=== PATIENT | male | born 1935 | race Caucasian/White ===

== ENCOUNTER 2016-10-31 07:16 | Emergency (ER) | payer OTHER, MEDICARE ==
[~2016-10-31] VITALS: Ht 172.7 cm; Wt 90.7 kg
[~2016-10-31 07:16] MED LIST: ATENOLOL50 MG PO; DOXYCYCLINE100 MG PO; EPIPEN 2-PAK1 MG/ML IM; LOSARTAN POTAS100 MG PO; PREDNICOT20 MG PO; SIMVASTATIN80 MG PO
--- NOTE | 2016-10-31 07:45 | ED AMS/SEIZURE/WEAK/DIZZY ---
History of Present Illness General Chief Complaint: General Adult Stated Complaint: BIBA FEVER,DIZZY,GEN MALAISE Source: patient, old records, EMS Exam Limitations: poor historian Vital Signs & Intake/Output Vital Signs & Intake/Output Vital Signs Date Time Temp Pulse Resp B/P Pulse O2 O2 Flow FiO2 Ox Delivery Rate 10/31 1031 99.4 96 20 133/63 95 Room Air Room Air 10/31 0859 100.5 10/31 0853 100.5 96 15 124/57 96 Nasal 2.0L Cannula 10/31 0751 101.8 10/31 0730 92 Room Air Room Air 10/31 0720 101.8 112 20 145/65 92 Room Air Room Air Allergies Coded Allergies: Sulfa (Sulfonamide Antibiotics) (UNKNOWN 10/31/16) aspirin (UNKNOWN 10/31/16) Reconcile Medications Atenolol 50 MG TAB 1 TAB PO DAILY BP (Reported) Doxycycline Hyclate 100 MG CAP 1 CAP PO BID INFECTION (Reported) Epinephrine (Epipen 2-Grzegorz Auto-Injector) 1 MG/ML KIT 0.3 mg IM PRN ANAPHYLAXIS Losartan Potassium 100 MG TAB 1 TAB PO DAILY HTN (Reported) Prednisone (Prednicot) 20 MG TAB 1 TAB PO TID ALLERGIC REACTION Simvastatin (Zocor) 80 MG TAB 0.5 TAB PO DAILY HIGH CHOLESTEROL (Reported) Triage Note: PT BIBA FROM HOME FOR GENERALIZED WEAKNESS AND MALAISE WITH LIGHTHEADEDNESS UPON POSITION CHANGE. ALSO COMPLAINS OF FEVER 102.8 AT HOME, 101.8 ON ARRIVAL. PT TACHYCARDIC 110. DENIES ANY COUGH, CHILLS, PAIN, DIFF URINATING. Triage Nurses Notes Reviewed? yes HPI: Patient presents for evaluation of generalized weakness and trouble walking that occurred prior to arrival. The patient himself wasn't sure exactly why he was brought to the emergency Department history was obtained primarily via his . His states that upon awakening this morning he didn't seem to feel well. She states he looked somewhat beltre and was having trouble getting up out of bed. She got him a drink of water but noted that he was having some trouble with ambulating. In addition he felt like he had a fever today. He denies associated cold symptoms, chest pain, dyspnea, abdominal pain, vomiting, diarrhea, dysuria, rashes, known ill contacts or recent travel. Past History Travel History Traveled to [place] past 21 day No Medical History Any Pertinent Medical History? 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 No Review of Systems Review of Systems Constitutional: Reports: fever, weakness. EENTM: Reports: no symptoms. Respiratory: Reports: no symptoms. Cardiovascular: Reports: no symptoms. GI: Reports: no symptoms. Genitourinary: Reports: no symptoms. Musculoskeletal: Reports: no symptoms. Skin: Reports: no symptoms. Neurological/Psychological: Reports: no symptoms. Hematologic/Endocrine: Reports: no symptoms. Immunologic/Allergic: Reports: no symptoms. All Other Systems: Reviewed and Negative Physical Exam Physical Exam General Appearance: SEE BELOW Comments: Gen.: Well-nourished, well-developed, no acute respiratory distress. Head: Normocephalic, atraumatic. Eyes: Normal inspection bilaterally Ears: Normal inspection bilaterally Nose: Normal inspection Throat/mouth : Moist mucosa, no oropharyngeal erythema or soft tissue swelling Neck: Supple, full range of motion, no goiter Heart: Regular rate and rhythm, no murmurs rubs or gallops Lungs: Clear to auscultation bilaterally with normal air entry Chest: Nontender Back: Normal range of motion Abdomen: Soft, nontender, nondistended, normal bowel sounds Extremities: Normal range of motion grossly, equal radial pulses, no cyanosis, bilateral 2+ lower extremity pitting edema with chronic skin changes/stasis dermatitis Neurologic: Cranial nerves grossly intact, speech is clear Skin: warm and dry Psychiatric: Calm, cooperative, no apparent delusions or hallucinations Core Measures ACS in differential dx? No CVA/TIA Diagnosis: No Severe Sepsis Present: No Septic Shock Present: No Progress Differential Diagnosis: viral syndrome, pneumonia, urinary tract infection, bacteremia Plan of Care: Orders Procedure Date/time Status CULTURE,URINE 02/16 0744 Active BLOOD CULTURE 10/31 743 Active URINALYSIS 10/31 743 Complete TROPONIN LEVEL 10/31 730 Complete COMPREHENSIVE METABOLIC PANEL 10/31 730 Complete CBC WITHOUT DIFFERENTIAL 10/31 730 Complete EKG 10/31 730 Active Laboratory Tests 10/31/16 0842: Urine Color YEL, Urine Clarity CLEAR, Urine pH 6.0, Ur Specific [place] 1.015, Urine Protein NEG, Urine Ketones NEG, Urine Nitrite NEG, Urine Bilirubin NEG, Urine Urobilinogen 0.2, Ur Leukocyte Esterase NEG, Ur Microscopic EXAM NOT REQUIRED, Urine Hemoglobin NEG, Urine Glucose NEG 10/31/16 0737: Anion Gap 10, Estimated GFR > 60, BUN/Creatinine Ratio 17.3, Glucose 134 H, Calcium 9.0, Total Bilirubin 1.3, AST 25, ALT 27, Alkaline Phosphatase 76, Troponin I < 0.01, Total Protein 5.9 L, Albumin 3.6, Globulin 2.3, Albumin/ Globulin Ratio 1.6, CBC w Diff MAN DIFF ORDERED, RBC 4.06 L, MCV 95.2 H, MCH 32.0 H, RDW 14.7 H, MPV 8.1, Gran % 92.9 H, Lymphocytes % 3.3 L, Monocytes % 3.6, Eosinophils % 0.1, Basophils % 0.1, Absolute Granulocytes 12.5 H, Absolute Lymphocytes 0.4 L, Absolute Monocytes 0.5, Absolute Eosinophils 0, Absolute Basophils 0, Platelet Estimate VERIFIED BY SMEAR, Normocytic RBCs VERIFIED, Normochromic RBCs VERIFIED, PUBS MCHC 33.6 Microbiology 10/31 0850 BLOOD: Blood Culture - RECD 10/31 841 URINE ROUT: Urine Culture - RECD 10/31 736 BLOOD: Blood Culture - RECD Diagnostic Imaging: Discussed w/RAD: Radiology Read. CXR Impression: PATIENT: ULISSES MCDANIEL PRESENT AGE: 81 PATIENT ACCOUNT NO: [id number] : 35 LOCATION: [facility] ORDERING PHYSICIAN: YARIEL RILEY MD SERVICE DATE: 10/31/16 EXAM TYPE: RAD - XRY-PORTABLE CHEST XRAY EXAMINATION: XR PORTABLE CHEST CLINICAL INFORMATION: Fever and weakness COMPARISON: CXR from 05/03/2012 TECHNIQUE: Portable AP view of the chest was obtained. FINDINGS: Lungs are well expanded and clear. No evidence of acute pulmonary consolidation or pleural effusion on this single view of the chest. Cardiac silhouette is normal in size. The contour of the cardiac silhouette and paracardiac fat pads is unchanged compared to 05/03/2012. Pulmonary kelli are unremarkable. No acute skeletal findings in the visualized thorax. IMPRESSION: No acute findings; no evidence of pneumonia. DICTATED BY: TOMER ARRIETA MD DATE/TIME DICTATED:10/31/16816 ER REGISTRAR:FAM DATE/TIME TRANSCRIBED:10/31/16816 CONFIDENTIAL, DO NOT COPY WITHOUT APPROPRIATE AUTHORIZATION. <Electronically signed in Other Vendor System> SIGNED BY: TOMER ARRIETA MD 10/31/16822 Initial ED EKG: NSR, rate (107) Prior EKG: unchanged (ASIDE FROM RATE) Comments: 10/31/2016 10:09:50 AM I have updated Ulisses and his on test results. He would rather not be hospitalized under the circumstances but given the difficulty he had getting out of bed and ambulating, I have expressed my concerns. I have just taken him off his oxygen supplementation and will monitor for any hypoxia. In addition we will see how well he ambulates in the emergency department. Disposition is pending. pt case d/w dr marie. The patient has no apparent clinical focus of infection or increasing the likelihood that this is a viral illness. However given his age and elevation of white blood cell count, we feel it is appropriate for close clinical follow-up. He will contact his covering physician (he will be on vacation starting today) for follow-up appointment tomorrow. Otherwise the last that the patient return to the emergency department for reevaluation. Departure Departure Disposition: HOME OR SELF CARE Condition: Stable Clinical Impression Primary Impression: Febrile illness, acute Referrals: RIMA FERGUSON,BENJI Gallegos (PCP/Family) Additional Instructions: Tylenol 650 mg every 4-6 hours as needed for fever. Maintained a good fluid intake. He will need to be seen in follow-up tomorrow by a physician covering for Dr. Marie. Dr. Marie will contact your home regarding this follow-up appointment. If this does not occur please return to the emergency department for reevaluation tomorrow afternoon. Otherwise return if any concerns or sudden worsening. Please note that there might be incidental findings in your evaluation that are unrelated to the current emergency department visit. Please notify your primary care doctor about this emergency department visit in order to obtain and review all of the testing performed so that these incidental findings can be monitored as needed. If you had an x-ray performed, please understand that some fractures may not be seen on the initial set of x-rays. If your symptoms persist you might need a repeat set of x-rays to check for such a fracture. If you had a laceration evaluated, please understand that foreign bodies such as glass or wood may not be visible to the naked eye or on plain x-rays. If the wound becomes red, swollen, increasingly more painful or if there is any drainage from the wound, please have it reevaluated by a physician for the possibility of a retained foreign body. Thank you for choosing the [facility] Emergency Department for your care. It was a pleasure to serve you today. Yariel Riley M.D. [facility] Departure Forms: Customer Survey General Discharge Information
[2016-10-31 07:48] LABS: ABSOLUTE BASOPHIL COUNT 0 /CUMM (0.0-0.2); ABSOLUTE EOSINOPHIL COUNT 0 /CUMM (0.0-0.7); ABSOLUTE GRANULOCYTE CT 12.5 /CUMM (1.4-6.5); ABSOLUTE LYMPH COUNT 0.4 /CUMM (1.2-3.4); ABSOLUTE MONOCYTE COUNT 0.5 /CUMM (0.10-0.60); BASOPHIL % 0.1 % (0.0-2.0); EOSINOPHIL % 0.1 % (0-5); GRANULOCYTE % 92.9 % (42.2-75.2); HEMATOCRIT 38.7 % (42-52); MEAN CORPUSCULAR HGB CONC 33.6 G/DL (33.0-37.0); MEAN CORPUSCULAR VOLUME 95.2 FL (80.0-94.0); MEAN PLATELET VOLUME 8.1 FL (7.4-10.4); PLATELET COUNT 139 /CUMM (130-400); RBC DISTRIBUTION WIDTH 14.7 % (11.5-14.5); RED BLOOD CELL CT 4.06 /CUMM (4.70-6.10); WHITE BLOOD CELL COUNT 13.4 /CUMM (4.8-10.8)
--- NOTE | 2016-10-31 08:23 | RADIOLOGY REPORT ---
EXAMINATION: XR PORTABLE CHEST CLINICAL INFORMATION: Fever and weakness COMPARISON: CXR from 05/03/2012 TECHNIQUE: Portable AP view of the chest was obtained. FINDINGS: Lungs are well expanded and clear. No evidence of acute pulmonary consolidation or pleural effusion on this single view of the chest. Cardiac silhouette is normal in size. The contour of the cardiac silhouette and paracardiac fat pads is unchanged compared to 05/03/2012. Pulmonary kelli are unremarkable. No acute skeletal findings in the visualized thorax. IMPRESSION: No acute findings; no evidence of pneumonia.
[2016-10-31 11:48] VITALS: BP 168/60
== END 2016-10-31 12:09 ==
LOC: ERH 07:16
PROVIDERS: Emergency Medicine
DX: R50.9 Fever, unspecified (principal); I10 Essential (primary) hypertension; Z87.891 Personal history of nicotine dependence
CPT/HCPCS: 81003; 87040; 87086; 93005; 93010; 96360; 96361